=== PATIENT | female | born 1985 | race Caucasian/White ===

== ENCOUNTER → 2018-07-08 12:48 | Outpatient (CLI) | payer BC, SELFPAY ==
[2018-07-08 13:54] LABS: Free T3 2.8 pg/mL (2.18-3.98); Thyroid Stim Hormone (TSH) 0.57 uIU/mL (0.358-3.74)
[2018-07-13 03:06] LABS: Testosterone, Free 0.38 ng/dL (0.10-0.85); Testosterone, Total 19 ng/dL (8-48)
[2018-07-13 11:10] LABS: DHEA Sulfate 410.4 ug/dL (84.8-378.0)
== END ==
DX: N94.3 Premenstrual tension syndrome (principal); E03.9 Hypothyroidism, unspecified
CPT/HCPCS: 36415; 82627; 84402; 84403; 84443; 84481; 82626

== ENCOUNTER → 2019-02-24 08:40 | Outpatient (CLI) | payer BC, SELFPAY ==
[2019-02-24 10:51] LABS: Insulin 19.2 mU/L (2.6-37.6)
[2019-02-25 11:08] LABS: Sex Hormone-binding Globulin 75.9 nmol/L (24.6-122.0)
== END ==
DX: R63.5 Abnormal weight gain (principal); N94.3 Premenstrual tension syndrome
CPT/HCPCS: 36415; 83525; 84270

== ENCOUNTER → 2021-01-02 08:54 | Outpatient (CLI) | payer BC, SELFPAY ==
[2020-09-23 10:32] VITALS: BMI 28.8
[2021-01-02 10:30] LABS: Insulin 16.6 mU/L (2.6-37.6)
[2021-01-02 10:41] LABS: Anion Gap 6 (5-15); BUN 16 mg/dL (7-18); BUN/Creat Ratio 15.7 RATIO (10-20); Chloride 107 mmol/L (98-107); Creatinine, Serum 1.02 mg/dL (0.55-1.02); EST Glomerular Filtration Rate 66 mL/min (>60); Est Glom Filt Rate - Afr Amer 80 mL/min (>60); Free T3 2.4 pg/mL (2.18-3.98); Glucose 98 mg/dL (74-106); Potassium 3.9 mmol/L (3.5-5.1); Sodium Level 138 mmol/L (136-145); Thyroid Stim Hormone (TSH) 1.33 uIU/mL (0.358-3.74)
[2021-01-03 11:35] LABS: Sex Hormone-binding Globulin 60.8 nmol/L (24.6-122.0)
== END ==
DX: N94.3 Premenstrual tension syndrome (principal); E03.9 Hypothyroidism, unspecified
CPT/HCPCS: 36415; 80048; 83525; 84270; 84443; 84481

== ENCOUNTER → 2022-02-28 | Outpatient (CLI) | payer BC, SELFPAY ==
[2022-02-28 12:51] LABS: T4 Free Direct 0.88 ng/dL (0.76-1.46); Thyroid Stim Hormone (TSH) 1.82 uIU/mL (0.358-3.74)
[2022-03-05 19:06] LABS: Testosterone, % Free 2.37 % (0.50-2.80); Testosterone, Free 0.92 ng/dL (0.10-0.85); Testosterone, Total 39 ng/dL (8-60)
== END | disposition home or self-care (01) ==
LOC: MTLAB 11:47
DX: E03.9 Hypothyroidism, unspecified (principal); N94.3 Premenstrual tension syndrome
CPT/HCPCS: 83525; 84270; 84402; 84403; 84439; 84443; 84481

== ENCOUNTER → 2024-03-02 | Outpatient (CLI) | payer BC, SELFPAY ==
[2024-03-02 09:00] LABS: Cholesterol 220 mg/dL (200); Glucose 108 mg/dL (74-106); High Density Lipoprotein 49 mg/dL; T4 Free Direct 0.82 ng/dL (0.76-1.46); T4 Total, Thyroxin 7.3 ug/dL (4.8-13.9); Thyroid Stim Hormone (TSH) 1.94 uIU/mL (0.358-3.74); Triglycerides 104 mg/dL; Very Low Density Lipoprotein 21 mg/dL (5-40)
== END | disposition home or self-care (01) ==
LOC: LAB 07:56
DX: N94.3 Premenstrual tension syndrome (principal); R63.5 Abnormal weight gain; E03.9 Hypothyroidism, unspecified
CPT/HCPCS: 36415; 80061; 82947; 84270; 84402; 84403; 84436; 84439; 84443; 84481